=== PATIENT | male | born 1980 | race Two or more races ===

== ENCOUNTER 2020-12-26 19:31 | Emergency (ER) | payer SELFPAY ==
[~2020-12-26] VITALS: Ht 195.6 cm; Wt 184.0 kg
[2020-12-26 19:33] VITALS: BP 142/91
--- NOTE | 2020-12-26 20:02 | NUR ---
Patient given discharge instructions and they have confirmed that they understand the instructions. Patient ambulatory with steady gait.
== END 2020-12-26 20:04 | disposition home or self-care (01) ==
LOC: ED 19:55
DX: E11.9 Type 2 diabetes mellitus without complications (principal); Z76.0 Encounter for issue of repeat prescription
CPT/HCPCS: 99281